=== PATIENT | male | born 1965 | race Caucasian/White ===

== ENCOUNTER → 2019-12-18 | Outpatient (CLI) | payer BC ==
--- NOTE | 2019-12-18 18:48 | CONS ---
CONSULTATION REASON FOR CONSULTATION: Sleep apnea. This is a 54-year-old male patient who was referred to me for evaluation of sleep apnea. His has told him that she is tired of him snoring loudly. She cannot sleep in the same bedroom with him and she has moved to the living room. The patient works in [employer] in [place] and lives in [facility]. He drives back and forth without having to fall asleep and he has never before involved in a motor vehicle accident because of feeling sleepy or tired. He snores and has been told that he quits breathing at night. He goes to bed around 9 or 10 p.m. and wakes up at 4:15 a.m. in the morning. On weekends, he sleeps between 11 p.m. and 1 a.m. and he wakes up between 8 and 10 a.m. in the morning. He averages a good 7 hours of sleep. No insomnia. No restlessness in the lower extremities. No grinding of the teeth. No anxiety. No depression. No head trauma. No recent weight gain or weight loss. Overall he has gained around 15 pounds over the past 10 years. No substance abuse or alcoholism. He is an ex-smoker. PAST MEDICAL HISTORY: Negative. SURGICAL HISTORY: Negative. DRUG ALLERGIES: NOT KNOWN. MEDICATIONS: None. SOCIAL HISTORY: He is an ex-smoker. He used to smoke one pack of cigarettes a day. No history of alcoholism. No history of IV drugs. FAMILY HISTORY: Negative for sleep apnea. REVIEW OF SYSTEMS: Fourteen-point review of system was done. Positive findings are all mentioned above in the history of present illness. No history of any sleepwalking or sleeptalking. No anxiety or panic attacks. No palpitation. No heartburn. No shortness of breath or chest pain. He snores less on his side. He does have some chronic environmental allergies. The patient has some seasonal rhinitis with some postnasal drainage and coughing. He wakes up with a dry mouth. PHYSICAL EXAMINATION: VITAL SIGNS: BP is 156/100, pulse 75, respirations 16, temperature 98.1, saturation 95% on room air. Arlington score is 8. BMI is 37.3. Neck size is 18-3/4 inches. Weight is 251, height is 5 feet 8 inches. GENERAL APPEARANCE: Obese, calm, comfortable. HEAD: Atraumatic, normocephalic. NECK: Supple. No JVD. No goiter or neck masses. Mallampati class IV. LUNGS: Clear to auscultation. HEART: Heart sounds are regular rate and rhythm. Normal S1, S2. No S3, S4. No murmurs. ABDOMEN: Soft, nontender. No organomegaly. EXTREMITIES: No edema. No cyanosis or clubbing. NEUROLOGIC: Awake and alert. No focal neurological deficits. PSYCHIATRIC: Negative for anxiety or depression. SKIN: Negative for any wounds or ulceration. IMPRESSION: 1. Loud snoring with high likelihood of obstructive sleep apnea. 2. Mild hypersomnia. Arlington score is 8. 3. Hypertension. It could be a white coat effect, as the patient tells me that his blood pressure on outpatient basis has been well controlled. This is something that he needs to watch for very closely. 4. Obesity with a body mass index of 37.3. PLAN: 1. Home sleep study. 2. Encourage weight loss. 3. Avoid alcohol drinking late at night time. 4. Sleep on his side with the head of the bed elevated at 20 degrees. 5. Utilize Flonase for sinus allergies. 6. Will decide if treatment is needed with CPAP based on the results of the home sleep study. MMODL / IJN: [id number] /
== END | disposition home or self-care (01) ==
LOC: SLEEP 14:37
PROVIDERS: ATTEND Internal Medicine Critical Care Medicine
DX: R06.83 Snoring (principal); I10 Essential (primary) hypertension; E66.9 Obesity, unspecified; Z68.37 Body mass index [BMI] 37.0-37.9, adult; Z87.891 Personal history of nicotine dependence
CPT/HCPCS: 99211

== ENCOUNTER 2021-10-20 08:22 | Day surgery (SDC) | payer BC ==
[2021-10-19 09:16] VITALS: BMI 30.4
[2021-10-20] MEDS ORDERED: LACTATED RINGERS 1,000 ML IV SCH (08:38)
[2021-10-20 08:44] VITALS: TEMP 97.4
[2021-10-20] MEDS ORDERED: LIDOCAINE 1% (10MG/ML) FOR IV START INTRADERMA ONE (08:46)
[2021-10-20 09:15] LABS: Glucose,Whole Blood 95 mg/dL (75-99)
[2021-10-20] MEDS ORDERED: PROPOFOL 10 MG/ML 20 ML VIAL IV ONE (09:32)
--- NOTE | 2021-10-20 09:43 | P.PCN ---
Date of Procedure: 10/20/21 Procedure(s) Performed: BRIEF HISTORY: Patient is a 56-year-old pleasant white male scheduled for an elective colonoscopy as a part of screening for colorectal neoplasia. PROCEDURE PERFORMED: Colonoscopy. PREOPERATIVE DIAGNOSIS: Screening for colon cancer. IV sedation per Anesthesia. PROCEDURE: After informed consent was obtained, the patient, was brought into the endoscopy unit. IV sedation was administered by Anesthesia under continuous monitoring. Digital rectal examination was normal. Initially the Olympus CF-160 flexible video colonoscope was then inserted in the rectum, gradually advanced into the cecum without any difficulty. Careful examination was performed as the scope was gradually being withdrawn. Ileocecal valve and the appendiceal orifice were visualized and appeared normal. Prep was excellent. Mucosa of the cecum, ascending colon, transverse colon, descending colon, sigmoid colon, and rectum appeared normal. Scattered sigmoid diverticulosis. Retroflexion was performed in the rectum and no lesions were seen. The patient tolerated the procedure well. IMPRESSION: Normal-appearing colon from rectum to cecum with no evidence of colorectal neoplasia . Scattered sigmoid diverticulosis. RECOMMENDATIONS: Findings of this examination were discussed with the patient a s well as his family. He was advised to have a repeat screening colonoscopy in 10 years..
[2021-10-20 10:04] VITALS: BP 125/87; PULSE 64; RESP 14
== END 2021-10-20 10:19 | disposition home or self-care (01) ==
LOC: ORWHC2ENDO 08:22
PROVIDERS: ATTEND Internal Medicine Gastroenterology
DX: Z12.11 Encounter for screening for malignant neoplasm of colon (principal)
CPT/HCPCS: 45378; J2704